=== PATIENT | male | born 1990 | race Two or more races ===

== ENCOUNTER 2023-07-27 03:06 | Emergency (ER) | payer MEDICAID, OTHER ==
[~2023-07-27] VITALS: Ht 160 cm; Wt 104.5 kg
[2023-07-27 03:25] VITALS: BP 159/80; PULSE 112; RESP 16; TEMP 98.6; O2SAT 100
[2023-07-27] MEDS: KETOROLAC TROMETH 30 MG/ML 1ML VIAL IM ONE (04:39)
[2023-07-27] MEDS ORDERED: CYCL-837 PO (04:51)
[2023-07-27] MEDS ORDERED: IBUP-1455 PO (04:51)
== END 2023-07-27 05:04 | disposition home or self-care (01) ==
LOC: ER 03:06 → EDBD 03:06 → ER 05:03
DX: S80.01XA Contusion of right knee, initial encounter (principal); M54.50 Low back pain, unspecified; M79.18 Myalgia, other site; V43.62XA Car passenger injured in collision with other type car in traffic accident, initial encounter; Y93.89 Activity, other specified; Y92.488 Other paved roadways as the place of occurrence of the external cause; Y99.8 Other external cause status
CPT/HCPCS: 96372; 99283; J1885

== ENCOUNTER 2024-05-24 21:51 | Emergency (ER) | payer MEDICAID ==
[~2024-05-24] VITALS: Ht 160 cm; Wt 106.9 kg
[~2024-05-24 21:51] MED LIST: CYCL-837 PO; IBUP-1455 PO
--- NOTE | 2024-05-24 22:22 | ED.PDOC ---
History of Present Illness HPI Comments 33 y/o F presents with c/o right-sided headache, blurry vision, and jaw numbness, today. Patient endorses on unprovoked and sudden onset of symptoms, today, after having right-eye twitching that have been ongoing for the past 2x days. She comments on her right-eye vision becoming blurry, first, for the past several hours and then developing a headache and numbness 20-30x minutes prior to ED arrival, while eating dinner. Patient reports having no prior history of similar symptoms in the past. At time of assessment, she reports on headache symptom subsiding and denies any associated symptoms, such as weakness, tingling, or speech aphasia. Chief Complaint: Right Sided Weakness Time Seen by MD: 22:05 Primary Care Provider: Unknown Reviewed Notes: Nurses Notes, Medications, Allergies Allergies: Coded Allergies: NO KNOWN ALLERGIES (Unverified , 07/27/23) Home Meds Active Scripts Cyclobenzaprine Hcl (Cyclobenzaprine Hcl) 5 Mg Tab, 1 TAB PO TID, #20 TAB Prov:RODGER [facility] 07/27/23 Ibuprofen Micronized (Ibuprofen) 800 Mg Tab, 800 MG PO Q8HPRN PRN, #20 TAB Prov:RODGER [facility] 07/27/23 Information Source: Patient Mode of Arrival: Ambulatory Severity: Moderate Timing: Minutes Duration: Since onset Prehospital treatment: None Past Medical History Past Medical History (Other): obesity Surgical History: Denies all surgeries Family History Family History: Reviewed,noncontributory to illness Social History Smoker: Non-Smoker Alcohol: Denies ETOH Use Drugs: Denies Drug Use Lives In: Home EENTM: reports: blurred vision Neurological: reports: headache, numbness (right-jaw numbness ) All Other Systems: Reviewed and Negative (negative unless otherwise stated above or in HPI) Physical Exam General Appearance: No Apparent Distress, Normal HEENT: Normal ENT Inspection, Pharynx Normal, TMs Normal, Other (right-sided facial weakness, paresthesia that does not involve the forehead) Neck: Full Range of Motion, Non-Tender, Normal, Normal Inspection Respiratory: Chest Non-Tender, Lungs Clear, No Accessory Muscle Use, No Respiratory Distress, Normal Breath Sounds Cardiovascular: No Edema, No JVD, No Murmur, No Gallop, Normal Peripheral Pulses, Regular Rate/Rhythm Breast Exam: Deferred Gastrointestinal: No Organomegaly, Non Tender, No Pulsatile Mass, Normal Bowel Sounds, Soft Genitalia: Deferred Pelvic: Deferred Rectal: Deferred Extremities: No calf tenderness, Normal capillary refill, Normal inspection, Normal range of motion, Non-tender, No pedal edema Musculoskeletal : Apperance: Normal Neurologic: Alert, assistant to the dean II-XII nml as Tested, Normal Affect, Normal Mood, Other (right-sided facial weakness, paresthesia that does not involve the forehead) Cerebellar Function: Normal Reflexes: Normal Skin: Dry, Normal Color, Warm Lymphatic: No Adenopathy Was a procedure done? Was a procedure done?: No Differential Dx Considerations may include: Verdugo's Palsy, CVA, TIA, trismus, electrolyte imbalance X-Ray, Labs, Meds, VS Vital Signs Date Time Temp Pulse Resp B/P (MAP) Pulse Ox O2 Delivery O2 Flow Rate FiO2 05/24/24 23:00 97.9 87 21 116/68 (84) 96 97.9 05/24/24 23:00 87 21 96 Room Air* 0 21 05/24/24 22:44 82 05/24/24 21:55 97.4 97 16 141/81 (101) 96 Lab Test 05/24/24 23:21 05/24/24 22:22 05/24/24 22:18 05/24/24 22:00 Range/Units Troponin I High Sensitivity < 3 L < 3 L </=54 ng/L White Blood Count 9.1 4.4-10.8 10^3/uL Red Blood Count 5.04 4.5-5.90 10^6/uL Hemoglobin 14.7 13.5-17.5 g/dL Hematocrit 44.9 41.0-53.0 % Mean Corpuscular Volume 89.1 80.0-100.0 fL Mean Corpuscular Hemoglobin 29.2 28.0-32.0 pg Mean Corpuscular Hemoglobin Concent 32.8 32.0-36.0 g/dL Red Cell Distribution Width 14.4 H 11.8-14.3 % Platelet Count 219 140-450 10^3/uL Mean Platelet Volume 8.3 6.9-10.8 fL Neutrophils (%) (Auto) 64.7 37.0-80.0 % Lymphocytes (%) (Auto) 28.5 10.0-50.0 % Monocytes (%) (Auto) 4.1 0.0-12.0 % Eosinophils (%) (Auto) 2.5 0.0-7.0 % Basophils (%) (Auto) 0.2 0.0-2.0 % Neutrophils # (Auto) 5.8 1.6-8.6 10 ^3/uL Lymphocytes # (Auto) 2.6 0.4-5.4 10 ^3/uL Monocytes # (Auto) 0.4 0-1.3 10 ^3/uL Eosinophils # (Auto) 0.2 0-0.8 10 ^3/uL Basophils # (Auto) 0 0-0.2 10 ^3/uL Nucleated Red Blood Cells 0.1 % Prothrombin Time 10.1 9.3-11.8 sec Prothrombin Time INR 0.95 0.9-1.15 Activated Partial Thromboplast Time 26.1 24.5-34.5 SEC Sodium Level 140 136-145 mmol/L Potassium Level 3.8 3.5-5.1 mmol/L Chloride Level 106 98-107 mmol/L Carbon Dioxide Level 24 20-31 mmol/L Anion Gap 10 5-15 Blood Urea Nitrogen 6 L 9-23 mg/dL Creatinine 0.64 L 0.700-1.30 mg/dL Glomerular Filtration Rate Calc 130 >90 mL/min BUN/Creatinine Ratio 9.4 L 10.0-20.0 Serum Glucose 93 74-106 mg/dL Calcium Level 9.9 8.7-10.4 mg/dL Magnesium Level 1.9 1.6-2.6 mg/dL Total Bilirubin 0.4 0.2-1.0 mg/dL Aspartate Amino Transferase (AST) 29 13-40 U/L Alanine Aminotransferase (ALT) 41 H 7-40 U/L Alkaline Phosphatase 76 46-116 U/L B-Type Natriuretic Peptide 20.07 0-100 pg/mL Total Protein 7.8 5.7-8.2 g/dL Albumin 4.8 3.2-4.8 g/dL POC Glucose 83 70-106 mg/dl Urine Color Straw Yellow Urine Clarity Clear Clear Urine pH 6.5 5.0-9.0 Urine Specific [place] 1.026 1.001-1.035 Urine Protein Negative Negative Urine Ketones Negative Negative Urine Blood Negative Negative /uL Urine Nitrite Negative Negative Urine Bilirubin Negative Negative Urine Urobilinogen Normal Negative mg/dL Urine Leukocyte Esterase Negative Negative /uL Urine RBC 1 0 - 3 /hpf Urine Microscopic WBC 3 0-3 /HPF Urine Squamous Epithelial Cells Few <5 /hpf Urine Bacteria None seen None Seen /hpf Urine Glucose Normal Normal mg/dL [facility] [id number] [facility] [address] Ph: [phone] DIAGNOSTIC IMAGING Diagnostic Imaging Report : [id number] Signed PATIENT: GRUPO HENDRIX ACCT: [id number] UNIT: [id number] : 1990 LOC: ER ROOM / BED: / AGE / SEX: 33 / M ADM STATUS: REG ER SERVICE 08 ORDERING PHYSICIAN: ERLIN AGUILA MD PROCEDURE(s): [place] - ANGIO HEAD/Neck REASON: right facial weakness and numbness ORDER NUMBER(s): [id number], ACCESSION NUMBER(s): [id number] INDICATION: right facial weakness and numbness COMPARISON: None TECHNIQUE: CTA head without and with intravenous contrast. CTA neck with intravenous contrast. 3D image postprocessing was performed on a dedicated workstation and images were used for interpretation and reporting. Radiation Dose Information: CT Dose: CTDI volume is mGy. Dose-length product is mGy*cm FINDINGS: CT head: There is no evidence of intracranial hemorrhage, infarct, extra-axial collection, mass effect, midline shift, herniation or hydrocephalus. The ventricles, sulci and cisterns are normal. The nixon-white differentiation is normal. Visualized paranasal sinuses and mastoid air cells are clear. Soft tissues and calvarium are unremarkable. Mild old fracture of right medial orbital wall. CTA head: No abnormality is identified in the intracranial ICAs, MCAs, and ACAs. The intracranial vertebral and basilar arteries are also unremarkable as are the sawmill production worker. Visualized intracranial venous structures are grossly unremarkable. No evidence of large vessel occlusion, high-grade stenosis, aneurysm or vascular malformation. CTA neck: Aortic arch and origins of the great vessels are unremarkable. The left common, internal and external carotid arteries are normal. The right common, internal and external carotid arteries are normal. The cervical segments of the right and left vertebral arteries are normal. Left dominant. Soft tissues and osseous structures are unremarkable. IMPRESSION: No abnormality demonstrated. All CT scans at this [facility] facility are performed using dose modulation techniques as appropriate to a performed exam including the following: Automated exposure control was utilized; adjustment of the MA and/or KV according to patient size; and use of iterative reconstruction technique. ATED BY: DEL LAGUERRE MD DICTATED DATE/TIME: 05/24/242254 SIGNED BY: DEL LAGUERRE MD SIGNED DATE/TIME: 05/24/242254 CC: [place] [id number] Ph: [phone] DIAGNOSTIC IMAGING Diagnostic Imaging Report : [id number] Signed PATIENT: GRUPO HENDRIX ACCT: [id number] UNIT: [id number] : 1990 LOC: ER ROOM / BED: / AGE / SEX: 33 / M ADM STATUS: REG ER SERVICE 08 ORDERING PHYSICIAN: ERLIN AGUILA MD PROCEDURE(s): CXR1 - CHEST XRAY 1 VIEW REASON: ri facial week ORDER NUMBER(s): [id number], ACCESSION NUMBER(s): [id number] EXAM: XY CHEST XRAY 1 VIEW CLINICAL HISTORY: Right facial weakness TECHNIQUE: Single AP view of the chest WID: COMPARISON: None FINDINGS: Lines and tubes: None Chest: The heart size and pulmonary vasculature is within normal limits. No pleural effusion, pneumothorax, or consolidation. The osseous structures are grossly intact. IMPRESSION: No acute cardiopulmonary abnormality. 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 This is an inflammation likely caused by a virus of your facial nerve. You were prescribed antiviral medication. You were prescribed steroids. You can use eyedrops. You can take your eye shut at night to sleep. It is important to follow up with the regular doctor within 1 week. If your symptoms worsen or if any other concerns please return to the emergency room. e-Prescriptions Prednisone (Prednisone) 20 Mg Tab 60 MG PO DAILY for 7 Days, #21 MG Prov: ERLIN AGUILA MD 05/25/24 Valacyclovir Hcl (Valtrex) 1 Gm Tab 1 TAB PO TID for 7 Days, #21 TAB Prov: ERLIN AGUILA MD 05/25/24 Discharged With: Self Critical Care Note Critical Care Time?: No Stability Stability form required: No Heart Score Heart Score: Heart Score Response (Comments) Value History N/A 0 EKG N/A 0 Age N/A 0 Risk Factors N/A 0 Troponin N/A 0 Total 0 I personally scribed for ERLIN AGUILA MD ([email or web address]) on 05/24/24 at 22:22. Electronically submitted by Graeme Salguero ([email or web address]). I personally scribed for ERLIN AGUILA MD ([email or web address]) on 05/24/24 at 22:25. Electro nically submitted by Graeme Salguero ([email or web address]). I personally scribed for ERLIN AGUILA MD ([email or web address]) on 05/24/24 at 23:25. Elec tronically submitted by Graeme Salgueor ([email or web address]). ERLIN AGUILA MD May 24, 2024 22:22
[2024-05-24] MEDS: IOHEXOL 350 MG/ML 100ML IJ ONE (22:34)
[2024-05-24 22:40] LABS: Basophils # (auto) 0 10 ^3/uL (0-0.2); Basophils % (auto) 0.2 % (0.0-2.0); Eosinophils # (auto) 0.2 10 ^3/uL (0-0.8); Eosinophils % (auto) 2.5 % (0.0-7.0); Hematocrit 44.9 % (41.0-53.0); Hemoglobin 14.7 g/dL (13.5-17.5); Lymphocytes # (auto) 2.6 10 ^3/uL (0.4-5.4); Lymphocytes % (auto) 28.5 % (10.0-50.0); Mean Corpuscular Hemoglobin 29.2 pg (28.0-32.0); Mean Corpuscular Hgb Conc. 32.8 g/dL (32.0-36.0); Mean Corpuscular Volume 89.1 fL (80.0-100.0); Monocytes # (auto) 0.4 10 ^3/uL (0-1.3); Monocytes % (auto) 4.1 % (0.0-12.0); Neutrophils # (auto) 5.8 10 ^3/uL (1.6-8.6); Neutrophils % (auto) 64.7 % (37.0-80.0); Nucleated Red Blood Cells % 0.1 %; Platelet Count (auto) 219 10^3/uL (140-450); Red Blood Cells 5.04 10^6/uL (4.5-5.90); Red Cell Distribution Width 14.4 % (11.8-14.3); White Blood Cell 9.1 10^3/uL (4.4-10.8)
--- NOTE | 2024-05-24 22:46 | ECG ---
[facility] Test Date: 2024-05-24 Test Time: 22:44:02 Pat Name: GRUPO HENDRIX Department: ED Room: Gender: M Filer And Sander: [place] : 1990 Requested By: ERLIN AGUILA Order Number: [id number] Reading MD: Measurements Intervals Amelia Rate: 82 P: 49 ID: [id number] QRS: 35 QRSD: 86 T: 57 QT: 335 QTc: 392 Interpretive Statements Sinus rhythm Low voltage, precordial leads Please click the below link to view image of tracing.
--- NOTE | 2024-05-24 22:47 | DVH ---
EXAM: XY CHEST XRAY 1 VIEW CLINICAL HISTORY: Right facial weakness TECHNIQUE: Single AP view of the chest WID: COMPARISON: None FINDINGS: Lines and tubes: None Chest: The heart size and pulmonary vasculature is within normal limits. No pleural effusion, pneumothorax, or consolidation. The osseous structures are grossly intact. IMPRESSION: No acute cardiopulmonary abnormality.
[2024-05-24 22:53] LABS: Urine Bacteria None Seen /hpf (None Seen)
[2024-05-24 22:55] LABS: INR 0.95 (0.9-1.15); Partial Thromboplastin Time 26.1 SEC (24.5-34.5); Prothrombin Time 10.1 sec (9.3-11.8)
[2024-05-24 22:56] LABS: Alkaline Phosphatase 76 U/L (46-116); Anion Gap 10 (5-15); Aspartate Aminotransferase 29 U/L (13-40); BUN/Creatinine Ratio 9.4 (10.0-20.0); Calcium 9.9 mg/dL (8.7-10.4); Carbon Dioxide 24 mmol/L (20-31); Chloride 106 mmol/L (98-107); Glucose 93 mg/dL (74-106); Magnesium 1.9 mg/dL (1.6-2.6); Potassium 3.8 mmol/L (3.5-5.1); Sodium 140 mmol/L (136-145); Total Protein 7.8 g/dL (5.7-8.2)
[2024-05-24 22:57] LABS: Bilirubin, Total 0.4 mg/dL (0.2-1.0)
--- NOTE | 2024-05-24 22:57 | DVH ---
INDICATION: right facial weakness and numbness COMPARISON: None TECHNIQUE: CTA head without and with intravenous contrast. CTA neck with intravenous contrast. 3D image postprocessing was performed on a dedicated workstation and images were used for interpretation and reporting. Radiation Dose Information: CT Dose: CTDI volume is mGy. Dose-length product is mGy*cm FINDINGS: CT head: There is no evidence of intracranial hemorrhage, infarct, extra-axial collection, mass effect, midli ne shift, herniation or hydrocephalus. The ventricles, sulci and cisterns are normal. The nixon-whit e differentiation is normal. Visualized paranasal sinuses and mastoid air cells are clear. Soft ti ssues and calvarium are unremarkable. Mild old fracture of right medial orbital wall. CTA head: No abnormality is identified in the intracranial ICAs, MCAs, and ACAs. 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 Visualized intracranial venous structures ar e grossly unremarkable. No evidence of large vessel occlusion, high-grade stenosis, aneurysm or vascu lar malformation. CTA neck: Aortic arch and origins of the great vessels are unremarkable. The left common, internal and external carotid arteries are normal. The right common, internal and external carotid arteries are normal. The cervical segments of the right and left vertebral arteries are normal. Left dominant. Soft tissues and osseous structures are unremarkable. IMPRESSION: No abnormality demonstrated. All CT scans at this medical facility are performed using dose modulation techniques as appropriate t o a performed exam including the following: Automated exposure control was utilized; adjustment of th e MA and/or KV according to patient size; and use of iterative reconstruction technique.
[2024-05-24 23:00] VITALS: PULSE 87; RESP 21; O2SAT 96
[2024-05-24 23:02] LABS: Alanine Aminotransferase 41 U/L (7-40); Albumin 4.8 g/dL (3.2-4.8); Blood Urea Nitrogen 6 mg/dL (9-23)
[2024-05-24 23:08] LABS: Urine Blood Negative /uL (Negative); Urine Clarity Clear (Clear); Urine Protein, UAD Negative (Negative); Urine Specific Gravity 1.026 (1.001-1.035); Urine Squamous Epithelial Cell FEW /hpf (<5); Urine Urobilinogen Normal (Negative); Urine WBC 3 /HPF (0-3); Urine pH 6.5 (5.0-9.0)
[2024-05-24 23:14] LABS: Urine Color STRAW (Yellow)
[2024-05-25 01:00] VITALS: BP 121/58; PULSE 72; RESP 18; TEMP 98.3; O2SAT 97
[2024-05-25] MEDS ORDERED: PRED20TA2 PO (01:03)
[2024-05-25] MEDS ORDERED: VALA1TAB PO (01:03)
== END 2024-05-25 01:20 | disposition home or self-care (01) ==
LOC: ER 21:51
DX: G51.0 Bell's palsy (principal); E66.9 Obesity, unspecified; Z68.41 Body mass index [BMI] 40.0-44.9, adult; Z79.899 Other long term (current) drug therapy; Z86.2 Personal history of diseases of the blood and blood-forming organs and certain disorders involving the immune mechanism
CPT/HCPCS: 36415; 70496; 70498; 71045; 80053; 81001; 82947; 83735; 83880; 84484; 85025; 85610; 85730; 93005; 99285; Q9967; 82962